=== PATIENT | female | born 1980 | race African-American/Black ===

== ENCOUNTER 2020-06-05 17:13 | Emergency (ER) | payer MEDICAID ==
[~2020-06-05] VITALS: Ht 170.2 cm; Wt 60.0 kg
[2020-06-05 17:15] VITALS: BP 120/84
[2020-06-05] MEDS ORDERED: ACETAMINOPHEN 325MG TABLET PO ONE (18:30)
== END 2020-06-05 19:48 | disposition home or self-care (01) ==
LOC: ER 17:23
DX: R51 Headache (principal); J45.909 Unspecified asthma, uncomplicated
CPT/HCPCS: 99283